=== PATIENT | female | born 1955 | race Caucasian/White ===

== ENCOUNTER 2016-12-17 11:39 | Emergency (ER) | payer OTHER ==
--- NOTE | ~2016-12-17 | CT98 ---
[facility] A Service of [facility] & [facility] / [facility] RADIOLOGY TEXT RESULTS PATIENT: OSCAR THOMASON LOCATION: [place] : 57 UNIT #: [id number] AGE: [address]: Miranda Morris SEX: F ORDER DR: [id number] [facility] [address] [place], [place] [address] [id number] E MR#: [id number] Acc #: [id number] NAME: OSCAR THOMASON. : 1955 SEX: F STUDY DATE/TIME: 12/17/2016 12:37 UNIT: [facility] ROOM: STUDY DESCRIPTION: CT Lumbar Spine Wo Cont Attending Physician: Miranda Morris P.A.-C. Ordering Physician: Miranda Morris P.A.-C. Primary Care Physician: Luis Alfredo Wills M.D. MEDICAL IMAGING REPORT This report is preliminary unless electronic signature is present EXAM CT lumbar spine without contrast. DATE 12/17/2016 HISTORY 61-year-old female with back pain radiating to the right lower extremity for 3 days. Fell on Friday. Pain is worse after sneezing today. COMPARISON No prior dedicated lumbar spine imaging at this institution for comparison. PROCEDURE 2 mm axial images through the lumbar spine without contrast. Sagittal and coronal reformatted images were obtained. This CT exam was performed with one or more of the following radiation dose reduction techniques: automatic exposure control, adjustment of mA and/or kV according to patient size, and iterative reconstruction. FINDINGS There is very mild upper lumbar curvature toward the left. There is diminished disc height eccentrically on the left at L2-3 with vacuum disc phenomenon. Left lateral marginal osteophyte formation is present at L1-L4. There is mild degenerative change of bilateral sacroiliac joints. Nondisplaced right eleventh rib fracture posteriorly. No acute lumbar spine fracture or subluxation. At T12-L1, no significant disc bulge, canal or foraminal stenosis is seen. At L1-2, there is mild broad-based disc bulge, with only borderline canal stenosis. No significant facet arthropathy. Very mild bilateral inferior STS. [facility] A Service of [facility] & [facility] / [facility] RADIOLOGY TEXT RESULTS PATIENT: OSCAR THOMASON LOCATION: [facility] : 57 UNIT #: [id number] AGE: [address]: Miranda Morris SEX: F ORDER DR: neural foraminal narrowing. At L2-3, there is moderate concentric disc bulge slightly eccentric to the left subarticular to paravertebral region. There is mild ligamentum flavum hypertrophy and facet arthropathy. There is mold-we-vhbjtily canal stenosis, moderate left, mild right inferior neural foraminal narrowing. At L3-4, there is mild concentric disc bulge and mild bilateral facet arthropathy. There is borderline to mild canal stenosis and probable mild left greater right inferior neural foraminal narrowing. At L4-5, there is concentric disc bulge slightly eccentric to the left lateral recess. There is pnyp-oe-vxnzlxhd facet arthropathy and ligamentum flavum hypertrophy. There is moderate canal stenosis, moderate bilateral inferior neural foraminal narrowing. At L5-S1, there is mild broad-based disc bulge. Advanced right greater left facet arthropathy is present with ligament flavum hypertrophy. Mild canal stenosis. Moderate to severe right, mild left inferior neural foraminal narrowing. Surgical changes of stomach and left upper quadrant small bowel, potentially representing gastric bypass. Suspected small gallstones. IMPRESSION 1. No acute lumbar spine findings. Multilevel degenerative changes in the lumbar spine as described in detail in the report, with probable moderate canal stenosis at L4-5, zgnt-sq-xikzptvm canal stenosis at L2-3, and varying degrees of bilateral neural foraminal narrowing. 2. Nondisplaced right eleventh rib fracture posteriorly. 3. Additional incidental findings of cholelithiasis and suspected gastric bypass. Dictated by... Irina Orellana M.D. THIS IS AN ELECTRONICALLY VERIFIED REPORT Irina Orellana M.D. at 12/18/2016 9:41 AM ISMAEL/neris TD: 12/17/2016 14:59 JOB #: [id number] MEDICAL IMAGING REPORT Page 1 of 1 COPY
--- NOTE | ~2016-12-17 | CT122 ---
[facility] A Service of [facility] & [facility] RADIOLOGY TEXT RESULTS PATIENT: OSCAR THOMASON LOCATION: [facility] : 57 UNIT #: [id number] AGE: [address]: Miranda Morris SEX: F ORDER DR: [id number] [facility] [address] [place], [place] [address] [id number] E MR#: [id number] Acc #: [id number] NAME: OSCAR THOMASON. : 1955 SEX: F STUDY DATE/TIME: 12/17/2016 12:37 UNIT: [facility] ROOM: STUDY DESCRIPTION: CT Thoracic Spine Wo Cont Attending Physician: Miranda Morris P.A.-C. Ordering Physician: Miranda Morris P.A.-C. Primary Care Physician: Luis Alfredo Wills M.D. MEDICAL IMAGING REPORT This report is preliminary unless electronic signature is present EXAM CT thoracic spine without contrast, 12/17/2016. HISTORY 61-year-old female with back pain radiating to the right lower extremity for 3 days. Fell on Friday. Worse after sneezing today. COMPARISON CT chest bone windows 12/19/2015. No prior dedicated thoracic spine imaging at this institution for comparison. PROCEDURE 2-mm noncontrast axial images through the thoracic spine. Sagittal coronal reformatted images were obtained. This CT exam was performed with one or more of the following radiation dose reduction techniques: automatic exposure control, adjustment of mA and/or kV according to patient size, and iterative reconstruction. FINDINGS Studies is attenuated by patient body habitus. A few of the images are also mildly degraded by patient motion. There is mild mid thoracic curvature toward the right, thoracolumbar junction curvature toward the left. No acute thoracic vertebral body fracture or subluxation is seen. No high-grade canal stenosis is identified. Incidental note is made of a nondisplaced right eleventh rib fracture posteriorly. Included portions of the lungs appear free of acute airspace disease, and no pneumothorax is identified. Mild cardiomegaly with coronary artery calcifications or stents in place. Surgical changes of the visualized stomach, and probable tiny gallstones. IMPRESSION 1. Study is mildly degraded by patient body habitus and motion. [facility]. [facility] A Service of [facility] RADIOLOGY TEXT RESULTS PATIENT: OSCAR THOMASON LOCATION: [facility] : 57 UNIT #: [id number] AGE: [address]: Miranda Morris SEX: F ORDER DR: 2. No acute thoracic vertebral body fracture or subluxation. 3. There is a nondisplaced right eleventh rib fracture posteriorly. 4. Mild thoracolumbar scoliosis. 5. Uncomplicated cholelithiasis. 6. Mild cardiomegaly with coronary artery calcifications or stents in place. Correlate with cardiac history. 7. Surgical changes of the stomach. Dictated by... Irina Orellana M.D. THIS IS AN ELECTRONICALLY VERIFIED REPORT Irina Orellana M.D. at 12/18/2016 9:41 AM ISMAEL/georgina TD: 12/17/2016 14:52 JOB #: [id number] MEDICAL IMAGING REPORT Page 1 of 1 COPY
--- NOTE | ~2016-12-17 | CR151 ---
[facility] A Service of [facility] & [facility] RADIOLOGY TEXT RESULTS PATIENT: OSCAR THOMASON LOCATION: [place] : 57 UNIT #: [id number] AGE: [address]: Miranda Morris SEX: F ORDER DR: [id number] [facility] [address] [place], [place] [address] [id number] E MR#: [id number] Acc #: [id number] NAME: OSCAR THOMASON : 1955 SEX: F STUDY DATE/TIME: 12/17/2016 12:15 UNIT: [facility] ROOM: STUDY DESCRIPTION: CR Hip Min 2 Views Rt Attending Physician: Miranda Morris P.A.-C. Ordering Physician: Miranda Morris P.A.-C. Primary Care Physician: Luis Alfredo Wills M.D. MEDICAL IMAGING REPORT This report is preliminary unless electronic signature is present EXAM AP pelvis with frog view of the right hip (2 images), 12/17/2016 HISTORY 61-year-old female with right hip pain and diminished range of motion for a few days. Large bruises all over body. Patient has no documented history of trauma. COMPARISON None FINDINGS Study is attenuated by body habitus. No acute pelvic fracture, hip fracture or hip dislocation is seen. Hip joint spaces appear preserved. Benign calcified phleboliths are present bilaterally in the pelvis, right greater left. No sacroiliac joint or pubic symphysis diastasis is seen. The included portion of lower lumbar spine appears grossly unremarkable. IMPRESSION Normal pelvis and right hip. Dictated by... Irina Orellana M.D. THIS IS AN ELECTRONICALLY VERIFIED REPORT Irina Orellana M.D. at 12/18/2016 9:40 AM Darwin TD: 12/17/2016 14:02 JOB #: [id number] MEDICAL IMAGING REPORT Page 1 of 1 COPY
[~2016-12-17 11:39] MED LIST: ATENOLOL PO; ATENOLOL-CHLOR1 EACH PO; ATORVASTATIN CA80 MG PO; BAYER ASPIRIN325 M1 PO; BYSTOLIC10 MG PO; BYSTOLIC20 MG PO; CALCIUM + D SO1 EACH PO; CLEOCIN HCL300 M1 PO; CLOPIDOGREL BIS75 MG PO; DIOVAN HCT 160-1 TAB PO; DIOVAN HCT 1601 EACH; DIOVAN HCT 320/1 TA1 PO; DIOVAN HCT 3201 EACH PO; DIOVAN320 MG PO; ESTRACE; FLUOXETINE HCL20 M1 PO; FLUOXETINE HCL60 MG PO; HYDROCODONE-APA1 T45 PO; IMDUR-ER60 M1 PO; LUNESTA PO; OMEPRAZOLE40 M1 PO; PERCOCET5/325 PO; PRILOSEC PO; PROZAC PO; SARAFEM20 MG PO; TOPROL XL 50 MG50 MG PO; TRAMADOL HCL50 M1 PO; VICODIN 5/1 TAB 5/50 PO; VITAMIN D400 UNI1 PO; VITAMIN D50000 UNIT PO
== END 2016-12-17 14:30 | disposition home or self-care (01) ==
LOC: CFTX 11:39 → CED 11:39 → CFTX 12:11
DX: S22.32XA Fracture of one rib, left side, initial encounter for closed fracture (principal); S30.0XXA Contusion of lower back and pelvis, initial encounter; I10 Essential (primary) hypertension; I25.10 Atherosclerotic heart disease of native coronary artery without angina pectoris; Z90.710 Acquired absence of both cervix and uterus; Z86.79 Personal history of other diseases of the circulatory system; Z79.899 Other long term (current) drug therapy; W17.89XA Other fall from one level to another, initial encounter; Y92.009 Unspecified place in unspecified non-institutional (private) residence as the place of occurrence of the external cause
CPT/HCPCS: 72128; 72131; 73502; 99283; 99284